=== PATIENT | female | born 2000 | race American Indian/Alaskan Native ===

== ENCOUNTER 2021-07-08 20:21 | Inpatient (IN) ==
[2021-07-08] MEDS ORDERED: NS 0.9% 1000 ml BAG 1,000 ML IV ONE (20:35)
[2021-07-08 21:29] LABS: ABS Eosinophils 0.3 10^3/ul (0-0.6); ABS Monocytes 0.6 10^3/ul (0-0.8); ABS Neutrophils 10.9 10^3/ul (1.5-7.7); Hematocrit 34 % (35-47); Hemoglobin 11.9 g/dL (12.0-16.0); Mean Corpuscular HGB Conc 35 g/dL (31-36); Mean Corpuscular Hemoglobin 32 pg (27-31); Mean Corpuscular Volume 90 fL (80-97); Mean Platelet Volume 7.9 fL (7.4-10.4); Platelet Count 270 10^3/uL (150-450); Red Blood Count 3.76 10^6 /uL (3.70-4.87); Red Cell Distribution Width 13 % (10-15); White Blood Count 12.7 10^3/uL (3.5-10.8)
[2021-07-08 21:59] LABS: ALT 17 U/L (7-52); AST 16 U/L (13-39); Acetaminophen < 15 mcg/mL; Albumin/Globulin Ratio 1.8 (1-3); Alcohol, S < 13 mg/dL (<13); Alkaline Phosphatase 69 U/L (35-149); Anion Gap 9 mmol/L (2-11); Blood Urea Nitrogen 13 mg/dL (6-24); CO2 Carbon Dioxide 22 mmol/L (22-32); Calcium 8.6 mg/dL (8.6-10.3); Chloride 106 mmol/L (101-111); Globulin 2.2 g/dL (2-4); Glucose 100 mg/dL (70-100); Potassium 3.8 mmol/L (3.5-5.0); Salicylate < 2.50 mg/dL (<30); Sodium 137 mmol/L (135-145); Total Protein 6.2 g/dL (6.4-8.9); eGFR CKD-EPI 109.8 (>60)
[2021-07-09 03:25] LABS: Urine Appearance Cloudy; Urine Bilirubin Negative (Negative); Urine Blood Negative (Negative); Urine Color Yellow; Urine Glucose Negative (Negative); Urine Ketones 1+ (Negative); Urine Nitrite Negative (Negative); Urine Protein Negative (Negative); Urine Specific Gravity 1.011 (1.002-1.030); Urine Urobilinogen Negative (Negative)
[2021-07-09 08:42] LABS: Urine Benzodiazepine Screen None Detected (None Detect); Urine Cannabinoids Screen Presumptive Positive (None Detect); Urine Opiates Screen None Detected (None Detect)
[2021-07-09] MEDS ORDERED: Al Hydrox/Mg Hydrox/Simet LIQ 30 ML UDC PO PRN (08:50)
[2021-07-10 07:51] LABS: HDL Cholesterol 51.1 mg/dL
[2021-07-13 07:53] VITALS: BP 133/73
[2021-07-13 12:25] LABS: HIV 4th Generation Nonreactive (Nonreactive)
[2021-07-14 12:14] LABS: Chlamydia trachomatis NAA Negative (Negative); Neisseria gonorrhoeae (GC) NAA Negative (Negative)
== END 2021-07-13 11:50 | disposition home or self-care (01) | DRG 753 ==
LOC: ED 20:21 → EDHOLD 07-09 08:50 → BSU 07-09 12:18
PROVIDERS: ADMIT Student in an Organized Health Care Education/Training Program; ATTEND Student in an Organized Health Care Education/Training Program

== ENCOUNTER 2023-08-13 23:33 | Inpatient (IN) ==
[2023-08-13] MEDS ORDERED: Ondansetron 4 mg VIAL 2 MG/ML 2 ml VIAL ONE (23:39)
[2023-08-13] MEDS ORDERED: Midazolam 2 mg/2 ml VIAL 1 mg/ml 2 ml VIAL (2 mg) ONE (23:51)
[2023-08-14] MEDS: Lactated Ringers 1000 ml BAG 1,000 ML IV ONE ×2 (00:03→00:46)
[2023-08-14 00:24] LABS: ABS Basophils 0.1 10^3/uL (0.0-0.1); ABS Eosinophils 1.3 10^3/uL (0.0-0.5); ABS Lymphocytes 3.9 10^3/uL (1.0-4.8); ABS Monocytes 0.4 10^3/uL (0.0-0.9); ABS Neutrophils 5.5 10^3/uL (1.5-7.6); ABS Nucleated RBC 0.01 10^3/ul; Eosinophil % 11.4 %; Hematocrit 33.5 % (35-45); Hemoglobin 11.3 g/dL (11.5-14.3); Lymphocyte % 34.7 %; Mean Corpuscular Hemoglobin 31.2 pg (27-33); Mean Corpuscular Hgb Conc 33.6 g/dL (31-36); Mean Corpuscular Volume 93.1 fL (80-97); Mean Platelet Volume 8.4 fL (7.5-11.2); Nucleated Red Blood Cells % 0.1 %/100WBC (0.0-0.8); Platelet Count 355 10^3/uL (150-450); Red Cell Distribution Width 13.2 % (12-17); White Blood Count 11.2 10^3/uL (3.8-11.8)
[2023-08-14] MEDS: Ondansetron 4 mg VIAL 2 MG/ML 2 ml VIAL IV ONE ×2 (00:47→03:29)
[2023-08-14 00:52] LABS: Venous Bicarbonate HCO3 18.4 mmol/L (24-28)
[2023-08-14] MEDS: Midazolam 2 mg/2 ml VIAL 1 mg/ml 2 ml VIAL (2 mg) IV SLOW PU ONE ×2 (00:57)
[2023-08-14 01:26] LABS: ALT 17 U/L (7-52); AST 20 U/L (13-39); Acetaminophen < 15 mcg/mL; Albumin 4.5 g/dL (3.2-5.2); Albumin/Globulin Ratio 2.1 (1-3); Alcohol, S 124 mg/dL (<13); Alkaline Phosphatase 57 U/L (35-149); Anion Gap 13 mmol/L (2-16); Blood Urea Nitrogen 9 mg/dL (6-24); CO2 Carbon Dioxide 19 mmol/L (22-32); Chloride 107 mmol/L (101-111); Globulin 2.1 g/dL (2-4); Glucose 230 mg/dL (70-100); Lithium < 0.16 mmol/L (0.6-1.2); Potassium 3.3 mmol/L (3.5-5.0); Salicylate < 2.50 mg/dL (<30); Sodium 139 mmol/L (135-145); Total Bilirubin 0.3 mg/dL (0.2-1.0); Total Protein 6.6 g/dL (6.4-8.9); eGFR CKD-EPI 106.8 (>60)
[2023-08-14 01:32] LABS: HCG Pregnancy < 0.60 mIU/mL
[2023-08-14] MEDS: Lactated Ringers 1000 ml BAG 1,000 ML IV SCH (01:34)
[2023-08-14] MEDS: KCL 20 MEQ/100 ML IVPREMIX 20 MEQ/100 ML BAG IV SCH (02:14)
[2023-08-14 02:18] LABS: Magnesium 1.9 mg/dL (1.9-2.7)
[2023-08-14] MEDS: Thiamine 100 MG/ML 2 ml VIAL (200 mg) IM ONE (03:36)
[2023-08-14] MEDS ORDERED: LORazepam 2 mg VIAL 1 ml IV PUSH SCH (04:00)
[2023-08-14] MEDS ORDERED: Diazepam IV 0-15 mg dose for WAM protocol IV SCH (04:00)
[2023-08-14 04:38] LABS: Urine Appearance Clear; Urine Bilirubin Negative (Negative); Urine Blood 3+ (Negative); Urine Color Colorless; Urine Glucose Trace (Negative); Urine Ketones Trace (Negative); Urine Nitrite Negative (Negative); Urine Protein Negative (Negative); Urine Urobilinogen Negative (Negative); Urine pH 6.5 (5.0-8.0)
[2023-08-14 04:42] LABS: Urine Benzodiazepine Screen Presumptive Positive (None Detect); Urine Cannabinoids Screen None Detected (None Detect); Urine Opiates Screen None Detected (None Detect)
[2023-08-14 04:54] LABS: Urine Bacteria Absent /HPF (Absent); Urine Red Blood Cell 3+(>10/hpf) /HPF (0-Trace); Urine Squamous Epithelial Cell Present /HPF (Absent); Urine White Blood Cell 1+(6-10/hpf) /HPF (0-Trace)
[2023-08-14 04:58] LABS: C Reactive Protein < 1.00 mg/L (<8.01)
[2023-08-14 05:37] LABS: Anion Gap 10 mmol/L (2-16); Blood Urea Nitrogen 6 mg/dL (6-24); CO2 Carbon Dioxide 23 mmol/L (22-32); Calcium 8.1 mg/dL (8.6-10.3); Chloride 108 mmol/L (101-111); Creatinine, Serum 0.68 mg/dL (0.51-0.95); Glucose 98 mg/dL (70-100); Lithium < 0.16 mmol/L (0.6-1.2); Potassium 4.2 mmol/L (3.5-5.0); Sodium 141 mmol/L (135-145); eGFR CKD-EPI 126.2 (>60)
[2023-08-14] MEDS: Enoxaparin 40 MG/0.4 ML SYR SUBCUT SCH (06:24)
[2023-08-14] MEDS: Acetaminophen IV 1 GM/100ML 1,000 MG/100 ML BAG IV PRN (08:07)
[2023-08-14] MEDS: Ondansetron 4 mg VIAL 2 MG/ML 2 ml VIAL IV PRN (08:54)
[2023-08-14] MEDS: diazePAM INJ CARPUJECT 5 MG/ML SYRINGE IV ONE (17:30)
[2023-08-14] MEDS: Magnesium Sulfate 2 gm BAG 2 GM/50 ML BAG IVPB ONE (19:35)
[2023-08-15 04:53] LABS: ABS Eosinophils 0.2 10^3/uL (0.0-0.5); ABS Lymphocytes 2.2 10^3/uL (1.0-4.8); ABS Monocytes 0.5 10^3/uL (0.0-0.9); ABS Neutrophils 3.5 10^3/uL (1.5-7.6); Eosinophil % 3.1 %; Hematocrit 33.3 % (35-45); Hemoglobin 11.4 g/dL (11.5-14.3); Lymphocyte % 34.2 %; Mean Corpuscular Hemoglobin 31.5 pg (27-33); Mean Corpuscular Hgb Conc 34.3 g/dL (31-36); Mean Corpuscular Volume 91.8 fL (80-97); Mean Platelet Volume 8.4 fL (7.5-11.2); Platelet Count 271 10^3/uL (150-450); Red Blood Count 3.63 10^6/uL (3.63-4.92); Red Cell Distribution Width 13.3 % (12-17); White Blood Count 6.4 10^3/uL (3.8-11.8)
[2023-08-15 06:05] LABS: Calcium 8.7 mg/dL (8.6-10.3); Creatinine, Serum 0.8 mg/dL (0.51-0.95); Potassium 3.9 mmol/L (3.5-5.0); eGFR CKD-EPI 106.8 (>60)
[2023-08-15 08:21] VITALS: BP 123/77
== END 2023-08-15 11:20 | DRG 812 ==
LOC: ED 23:33 → EDHOLD 08-14 03:24 → ICU 08-14 04:08
PROVIDERS: ADMIT Internal Medicine; ATTEND Student in an Organized Health Care Education/Training Program

== ENCOUNTER 2023-08-14 18:00 | Inpatient (IN) ==
[2023-08-15] MEDS ORDERED: Al Hydrox/Mg Hydrox/Simet LIQ 30 ML UDC PO PRN (12:00)
[2023-08-16 08:35] LABS: HDL Cholesterol 47.8 mg/dL
[2023-08-16] MEDS: Nicotine GUM 4MG FRUIT FLAVOR PO PRN (08:52)
[2023-08-18 09:09] VITALS: BP 124/75
== END 2023-08-18 13:20 | disposition home or self-care (01) | DRG 816 ==
LOC: BSU 08-15 12:23
PROVIDERS: ADMIT Psychiatry & Neurology Psychiatry; ATTEND Psychiatry & Neurology Psychiatry

== ENCOUNTER 2024-01-01 02:48 | Inpatient (IN) ==
[2024-01-01 04:44] LABS: ABS Eosinophils 0.4 10^3/uL (0.0-0.5); ABS Lymphocytes 2.2 10^3/uL (1.0-4.8); ABS Monocytes 0.6 10^3/uL (0.0-0.9); ABS Neutrophils 7.1 10^3/uL (1.5-7.6); Eosinophil % 4.2 %; Hemoglobin 12.6 g/dL (11.5-14.3); Mean Corpuscular Hemoglobin 30.5 pg (27-33); Mean Corpuscular Hgb Conc 33.2 g/dL (31-36); Mean Corpuscular Volume 91.8 fL (80-97); Mean Platelet Volume 8.3 fL (7.5-11.2); Platelet Count 361 10^3/uL (150-450); Red Blood Count 4.14 10^6/uL (3.63-4.92); Red Cell Distribution Width 13.3 % (12-17); White Blood Count 10.3 10^3/uL (3.8-11.8)
[2024-01-01 04:48] LABS: Urine Appearance Turbid; Urine Bilirubin Negative (Negative); Urine Blood 3+ (Negative); Urine Color Yellow; Urine Glucose Negative (Negative); Urine Ketones Negative (Negative); Urine Nitrite Negative (Negative); Urine Protein Trace (Negative); Urine Specific Gravity 1.023 (1.002-1.030); Urine Urobilinogen Negative (Negative); Urine pH 5.5 (5.0-8.0)
[2024-01-01 05:12] LABS: ALT 16 U/L (7-52); AST 15 U/L (13-39); Acetaminophen < 15 mcg/mL; Albumin 4.4 g/dL (3.2-5.2); Albumin/Globulin Ratio 1.8 (1-3); Alcohol, S < 13 mg/dL (<13); Alkaline Phosphatase 56 U/L (35-149); Anion Gap 9 mmol/L (2-16); Blood Urea Nitrogen 11 mg/dL (6-24); CO2 Carbon Dioxide 24 mmol/L (22-32); Calcium 9.4 mg/dL (8.6-10.3); Chloride 105 mmol/L (101-111); Globulin 2.4 g/dL (2-4); Glucose 98 mg/dL (70-100); Potassium 4.8 mmol/L (3.5-5.0); Salicylate < 2.50 mg/dL (<30); Sodium 138 mmol/L (135-145); Total Bilirubin 0.5 mg/dL (0.2-1.0); Total Protein 6.8 g/dL (6.4-8.9); eGFR CKD-EPI 106.1 (>60)
[2024-01-01 05:20] LABS: HCG Pregnancy < 0.60 mIU/mL
[2024-01-01 05:21] LABS: Urine Bacteria Absent /HPF (Absent); Urine Red Blood Cell 3+(>10/hpf) /HPF (0-Trace); Urine Squamous Epithelial Cell Present /HPF (Absent); Urine White Blood Cell Trace(0-5/hpf) /HPF (0-Trace)
[2024-01-01 05:39] LABS: Urine Benzodiazepine Screen None Detected (None Detect); Urine Cannabinoids Screen Presumptive Positive (None Detect); Urine Opiates Screen None Detected (None Detect)
[2024-01-01] MEDS ORDERED: Nicotine GUM 2MG FRUIT FLAVOR PO PRN (05:57)
[2024-01-01] MEDS ORDERED: Al Hydrox/Mg Hydrox/Simet LIQ 30 ML UDC PO PRN (05:57)
[2024-01-01 05:58] LABS: Lithium < 0.16 mmol/L (0.6-1.2)
[2024-01-01] MEDS: Vitamin THERAPEUTIC TAB PO SCH (10:39)
[2024-01-01] MEDS: Nicotine PATCH 21 MG/24 HR PATCH TRANSDERM SCH (12:29)
[2024-01-04 10:29] VITALS: BP 122/82
[2024-01-05 08:32] LABS: HDL Cholesterol 49.6 mg/dL
== END 2024-01-05 11:30 | disposition home or self-care (01) | DRG 753 ==
LOC: ED 02:48 → EDHOLD 05:45 → BSU 06:58
PROVIDERS: ADMIT Psychiatry & Neurology Psychiatry; ATTEND Psychiatry & Neurology Psychiatry